=== PATIENT | male | born 1960 | race Caucasian/White ===

== ENCOUNTER 2016-10-08 18:11 | Emergency (ER) | payer BC, OTHER ==
[~2016-10-08] VITALS: Ht 185.4 cm; Wt 106.0 kg
[2016-10-08 18:18] VITALS: BP 136/91; PULSE 87; RESP 16; TEMP 98.2; O2SAT 100
[2016-10-08] MEDS ORDERED: OSEL30 PO (18:47)
[2016-10-08] MEDS ORDERED: CIAL10TA PO (18:47)
[2016-10-08] MEDS ORDERED: SODIUM CHLOR 0.9% 1000 ML INJ 1,000 ML IV SCH ×2 (18:49→19:53)
[2016-10-08 19:14] VITALS: BP 137/88; PULSE 80; RESP 18; O2SAT 99
--- NOTE | 2016-10-08 19:26 | PD ---
HPI Chief Complaint: Cold / Flu Symptoms Time Seen by Provider: 19:22 Travel History International Travel<30 days: No Contact w/Intl Traveler<30days: No Traveled to known affect area: No History of Present Illness HPI 56-year-old male that presents to the ED for evaluation of cold-like symptoms. Patient has had symptoms for about a week. Per patient he was diagnosed by Dr. Guzman with a influenza. Patient was started on Tamiflu. Ever since patient has been having body aches and nausea and vomiting. Per patient he is not sure this is related to the flu or related to the medication. He denies any diarrhea but states that he has lost his appetite. He denies any chest pain. Per patient he has body aches all throughout. was concerned because patient developed some tremors. They called the doctor who recommended they come here. She has not used to medication. Per patient the pain is 10 out of 10 and comes and goes. Nothing seems to make them better or worse. Denies any blood with emesis. Denies any abdominal discomfort. No sick contacts. Patient is a smoker. PFSH Past Medical History Medical History: Denies Significant Hx Hx Anticoagulant Therapy: No ?: Not Past Surgical History Surgical History: No Previous Surgery Social History Alcohol Use: Yes Tobacco Use: Yes Substance Use: No Allergies-Medications (Allergen,Severity, Reaction): Coded Allergies: Tamiflu (Verified Adverse Reaction, Severe, Twitching, 10/08/16) Reported Meds & Prescriptions Reported Meds & Active Scripts Active Zofran (Ondansetron HCl) 4 Mg Tab 4 Mg PO Q6HR PRN Reported Tamiflu (Oseltamivir Phosphate) 30 Mg Cap 30 Mg PO BID Cialis (Tadalafil) 10 Mg Tab 10 Mg PO DAILY PRN Do not exceed 1 dose/day. Review of Systems General / Constitutional: Positive: Fever, Chills, No: Weight Gain, Weight Loss, Other Eyes: No: Diploplia, Blurred Vision, Photophobia, Drainage, Redness, Foreign Body Sensation, Pain, Tearing, Blind Spots, Visual changes, Blindness, Other HENT: Positive: Sore Throat, Rhinitis, Congestion, No: Headaches, Vertigo, Lightheadedness, Rhinorrhea, Nosebleed, Neck Stiffness, Neck Pain, Masses, Gingival Bleeding, Dental Difficulties, Ear Discharge, Earache, Other Cardiovascular: No: Chest Pain or Discomfort, Palpitations, Irregular Rhythm, Tachycardia, Diaphoresis, Syncope, Dyspnea on exertion, Varicosities, Edema, Cyanosis, Varicosities, Phlebitis, Claudication, Other Respiratory: Positive: Cough, No: Shortness of Breath, Wheezing, Sneezing, Orthopnea, Hemoptysis, Stridor, Night Sweats, Pleuritic Pain, Other Gastrointestinal: Positive: Nausea, Vomiting, No: Diarrhea, Abdominal Pain, Hematemesis, Hematochezia, Constipation, Changes in Bowel Habits, Indigestion, Dysphagia, Loss of Appetite, Other Genitourinary: No: Urgency, Frequency, Dysuria, Nocturia, Hematuria, Decreased Urinary Output, Oliguria, Hesitancy, Dribbling, Incontinence, Pelvic Pain, Flank Pain, Dyspareunia, Discharge, Dysmenorrhea, Menorrhagia, Metorrhagia, Vaginal Bleeding, Other Musculoskeletal: Positive: Myalgias, Arthralgias, No: Limited ROM, Weakness, Cramping, Edema, Pain, Atrophy, Other Skin: No Rash, No Itching, No Dryness, No Lumps, No Hives, No Change in Pigmentation, No Change in nails, No Alopecia, No Lesions, No Breast Lumps, No Breast Tenderness, No Breast Swelling, No Other Neurologic: Positive: Tremor, No: Weakness, Dizziness, Syncope, Focal Abnormalities, Coordination Problem, Ataxia, Headache, Change in Mentation, Slurred Speech, Paresthesia, Incontinence, Seizures, Sensory Disturbance, Other Psychiatric: No: Anxiety, Depression, Suicidal Ideations, Disorder of Thought, Mood Disorder, Substance Abuse, Homicidal Ideation, Other Endocrine: No: Heat Intolerance, Cold Intolerance, Polyuria, Polydipsia, Other Hematologic/Lymphatic: No: Easy Bruising, Lymph Node Enlargement, Other Physical Exam Narrative GENERAL: SKIN: Warm and dry. HEAD: Atraumatic. Normocephalic. EYES: Pupils equal and round 4 mm right to light and accommodation. No scleral icterus. No injection or drainage. ENT: No nasal bleeding or discharge. Mucous membranes pink and moist. Tongue is midline. No uvula deviation. NECK: Trachea midline. No JVD. CARDIOVASCULAR: Regular rate and rhythm. No murmurs, S3, S4. RESPIRATORY: No accessory muscle use. Clear to auscultation. Breath sounds equal bilaterally. GASTROINTESTINAL: Abdomen soft, non-tender, nondistended. Hepatic and splenic margins not palpable. MUSCULOSKELETAL: Extremities without clubbing, cyanosis, or edema. No obvious deformities. Full range of motion of the upper and lower extremities bilaterally. 2+ pulses bilaterally. NEUROLOGICAL: Awake and alert. No obvious cranial nerve deficits. Motor grossly within normal limits. Five out of 5 muscle strength in the arms and legs. Normal speech. PSYCHIATRIC: Appropriate mood and affect; insight and judgment normal. Data Data Last Documented VS Vital Signs Date Time Temp Pulse Resp B/P Pulse Ox O2 Delivery O2 Flow Rate FiO2 10/08/16 19:14 80 18 137/88 99 Room Air 10/08/16 18:18 98.2 Orders Basic Metabolic Panel (Bmp) (10/08/16 18:49) Complete Blood Count With Diff (10/08/16 18:49) Lactic Acid (10/08/16 18:49) Iv Access Insert/Monitor (10/08/16 18:49) Sodium Chlor 0.9% 1000 Ml Inj (Ns 1000 M (10/08/16 18:49) Chest, Single Ap (10/08/16 18:49) Creatine Kinase (Cpk) (10/08/16 18:49) Sodium Chlor 0.9% 1000 Ml Inj (Ns 1000 M (10/08/16 19:53) Labs Laboratory Tests Test 10/08/16 19:05 White Blood Count 7.0 TH/MM3 Red Blood Count 6.19 MIL/MM3 Hemoglobin 15.7 GM/DL Hematocrit 49.3 % Mean Corpuscular Volume 79.7 FL Mean Corpuscular Hemoglobin 25.4 PG Mean Corpuscular Hemoglobin 31.9 % Concent Red Cell Distribution Width 14.3 % Platelet Count 287 TH/MM3 Mean Platelet Volume 7.4 FL Neutrophils (%) (Auto) 74.4 % Lymphocytes (%) (Auto) 13.4 % Monocytes (%) (Auto) 10.2 % Eosinophils (%) (Auto) 1.5 % Basophils (%) (Auto) 0.5 % Neutrophils # (Auto) 5.3 TH/MM3 Lymphocytes # (Auto) 0.9 TH/MM3 Monocytes # (Auto) 0.7 TH/MM3 Eosinophils # (Auto) 0.1 TH/MM3 Basophils # (Auto) 0.0 TH/MM3 CBC Comment DIFF FINAL Differential Comment Sodium Level 140 MEQ/L Potassium Level 4.2 MEQ/L Chloride Level 103 MEQ/L Carbon Dioxide Level 27.3 MEQ/L Anion Gap 10 MEQ/L Blood Urea Nitrogen 19 MG/DL Creatinine 1.20 MG/DL Estimat Glomerular Filtration 63 ML/MIN Rate Random Glucose 105 MG/DL Lactic Acid Level 1.3 mmol/L Calcium Level 8.5 MG/DL Total Creatine Kinase 103 U/L MDM Medical Decision Making Medical Screen Exam Complete: Yes Emergency Medical Condition: Yes Medical Record Reviewed: Yes Interpretation(s) CBC & BMP Diagram 10/08/16 19:05 CPK WNL lactic acid WNL Last Impressions Chest X-Ray 10/08/16 4252 Signed Impressions: Service Date/Time: Monday, October 08, 2016 18:52 - CONCLUSION: No acute disease. Osvaldo Hyatt MD Differential Diagnosis Medication side effect versus dehydration versus rhabdomyolysis versus viral illness versus pneumonia versus pharyngitis Narrative Course 56-year-old male that presents to the ED for evaluation of cold-like symptoms persist medication side effect. Patient was properly examined and was found to have signs and symptoms consistent with dehydration at this time. Possible medication side effect. Labs and imaging ordered. Labs and imaging showed slight dehydration but no sign of acute disease. CPK within normal limits. Lactic acid within normal limits. No sign of pneumonia. Case will be discussed with my attending Dr Dillard who agrees with plan. From history and physical this appears to be likely a reaction to the Tamiflu. I recommend discontinuation of this medication. Patient with A prescription for Zofran for the nausea. Patient was told to take Tylenol for pain. Mucinex for cough or runny nose. Given note for work. Told that if anything worsens she is to come back to the ED. See ED worsening symptoms. Diagnosis Primary Impression: Medication side effect Qualified Code: T88.7XXA - Medication side effect, initial encounter Additional Impression: Influenza Patient Instructions: General Instructions Additional Instructions: Tylenol for pain and fever. You can use [id number] antihistamine as well as well as Mucinex as needed for runny nose and congestion. Cough drops for cough as needed. Drink plenty of fluids. Follow-up with PCP. See ED for worsening symptoms. Med/Other Pt SpecificInfo: Prescription(s) given, Med Stopped (tamfilu) Scripts Ondansetron (Zofran)4 Mg Tab4 Mg PO Q6HR PRN (NAUSEA OR VOMITING) #20 TAB Prov:Pedro Dillard MD 10/08/16 Disposition: 01 DISCHARGE HOME Condition: Stable Sean Romero Oct 08, 2016 19:26
[2016-10-08 19:37] LABS: AUTOMATED NEUTROPHIL # 5.3 TH/MM3 (1.8-7.7); BASOPHIL % 0.5 % (0.0-2.0); EOSINOPHIL # 0.1 TH/MM3 (0-0.4); EOSINOPHIL % 1.5 % (0.0-4.0); HEMATOCRIT 49.3 % (39.0-51.0); HEMO FLAGS DIFF FINAL; LYMPH % 13.4 % (9.0-44.0); LYMPHOCYTE # 0.9 TH/MM3 (1.0-4.8); MEAN CELL VOLUME 79.7 FL (80.0-100.0); MEAN CORPUSCULAR HEMOGLOBIN 25.4 PG (27.0-34.0); MEAN CORPUSCULAR HGB CONC 31.9 % (32.0-36.0); MONO % 10.2 % (0.0-8.0); NEUT % 74.4 % (16.0-70.0); PLATELET COUNT 287 TH/MM3 (150-450); RED BLOOD COUNT 6.19 MIL/MM3 (4.50-5.90); RED CELL DISTRIBUTION WIDTH 14.3 % (11.6-17.2)
[2016-10-08 19:39] LABS: POTASSIUM 4.2 MEQ/L (3.5-5.1)
--- NOTE | 2016-10-08 19:40 | RADHPO ---
EXAM DATE/TIME: 10/08/2016 18:52 [facility] COMPARISON: No previous studies available for comparison. INDICATIONS : Weakness. Short of breath. MEDICAL HISTORY : None. SURGICAL HISTORY : None. ENCOUNTER: Initial ACUITY: 1 week PAIN SCORE: 0/10 LOCATION: Bilateral chest FINDINGS: A single view of the chest demonstrates the lungs to be symmetrically aerated without evidence of mas s, infiltrate or effusion. The cardiomediastinal contours are unremarkable. Osseous structures are intact. CONCLUSION: No acute disease. Osvaldo Hyatt MD on October 08, 2016 at 19:38 Board Certified Radiologist. This report was verified electronically.
[2016-10-08 19:42] LABS: BICARBONATE 27.3 MEQ/L (21.0-32.0)
[2016-10-08] MEDS ORDERED: ZOFR4TAB PO (20:03)
[2016-10-08 20:19] VITALS: BP 165/89; PULSE 77; RESP 18; O2SAT 99
== END 2016-10-08 20:56 | disposition home or self-care (01) ==
LOC: PHED 18:11
DX: T88.7XXA Unspecified adverse effect of drug or medicament, initial encounter (principal); J09.X9 Influenza due to identified novel influenza A virus with other manifestations; E86.0 Dehydration
CPT/HCPCS: 71010; 80048; 82550; 83605; 85025; 96360; 99283; J7030